=== PATIENT | female | born 1935 | race Caucasian/White ===

== ENCOUNTER → 2016-07-02 | Outpatient (CLI) | payer MEDICARE, OTHER ==
--- NOTE | 2016-07-02 16:26 | US ---
EXAM DESCRIPTION: US CAROTID DOPPLER BILATERAL CLINICAL HISTORY: PRIOR CAROTID ENDARTERECTOMY, OCCLUSION AND STENOSIS OF WENDY CAROT COMPARISON: None Available. TECHNIQUE: Color Doppler evaluation of the extracranial carotids FINDINGS: Right carotid: The right common carotid artery is unremarkable. Mild smooth heterogeneous plaque in the carotid bulb to proximal internal carotid arteries seen. Peak systolic velocity common carotid artery = 75 cm/s Peak systolic velocity internal carotid artery = 8 4 cm/s Peak systolic velocity external carotid artery = 88 cm/s ICA CCA ratio 1.1 Left carotid: Left common carotid artery is unremarkable. Postsurgical changes from left carotid endarterectomy are seen. There is moderate intimal thickening and smooth heterogeneous plaque in the carotid bulb to internal carotid artery. Peak systolic velocity common carotid artery = 85 cm/s Peak systolic velocity internal carotid artery = 80 cm/s Peak systolic velocity external carotid artery = 90 cm/s ICA CCA ratio 0.9 Antegrade flow is seen in both vertebral arteries Normal flow velocities and waveforms are demonstrated bilaterally. 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 Electronically signed by: George Tillman MD 07/02/2016 16:25
== END ==
LOC: GMAB 14:50
PROVIDERS: ATTEND Family Medicine
DX: I65.23 Occlusion and stenosis of bilateral carotid arteries (principal); M25.559 Pain in unspecified hip

== ENCOUNTER → 2016-10-13 | Outpatient (CLI) | payer MEDICARE | END | disposition home or self-care (01) | LOC: GOCC 12:17 | PROVIDERS: ATTEND Internal Medicine | DX: R30.0 Dysuria (principal) ==

== ENCOUNTER 2017-02-07 09:16 | Emergency (ER) | payer MEDICARE ==
[2017-02-07 09:35] VITALS: TEMP 98.8
--- NOTE | 2017-02-07 09:55 | RAD ---
EXAM DESCRIPTION: Hip Bilateral CLINICAL HISTORY: 81 years, Female, fall COMPARISON: None TECHNIQUE: Two views of each hip FINDINGS: Two views of the coquille left hip demonstrate osteopenia and mild degenerative changes. The pubic initial ramus and the acetabulum are intact without evidence of fracture or dislocation of the hip. Two views of the right total hip replacement illustrates satisfactory alignment without evidence of loosening or erosion or dislocation. Extensive vascular calcification is present. IMPRESSION: 1. Osteopenic bony structures with satisfactory left hip in satisfactory right total hip replacement. Electronically signed by: Markel Hylton MD 02/07/2017 9:54 AM CDT
--- NOTE | 2017-02-07 09:56 | RAD ---
EXAM DESCRIPTION: Pelvis,2 or More Views CLINICAL HISTORY: 81 years Female, fall COMPARISON: None. FINDINGS: Pelvis is osteopenic but intact without evidence of deformity of the bony pelvic ring or fracture or soft tissue mass. IMPRESSION: Osteopenia without bony abnormality Electronically signed by: Markel Hylton MD 02/07/2017 9:55 AM CDT
--- NOTE | 2017-02-07 10:04 | ED.PDOC ---
History of Present Illness - General Chief Complaint: Lower Extremity Injury Stated Complaint: s/p fall Time Seen by Provider: 02/07/17 09:24 Source: patient Exam Limitations: no limitations - History of Present Illness Initial Comments: Sabra Mnan 81 y/o female stated that she fell on her bottom to the floor after her wheelchair rolled and unable to get to her wheelchair .Denies head, neck,chest injuries.No hip pains but wants to be checked since she had 3 surgeries on her right hip She was helped by assisted personnel and EMS was called to bring her to hospital. Timing/Duration: 1-3 hours Severity: mild Worsening Factors: nothing Associated Symptoms: denies symptoms Allergies/Adverse Reactions: Allergies Hydrocodone Allergy (Verified 02/07/17 09:32) Home Medications: Ambulatory Orders Acetaminophen W/ Codeine [Tylenol W/ CODEINE #3] 1 ea PO Q4H PRN 02/07/17 Alum & Mag Hydrox-Simethicone [Calista-Lanta] 30 ml PO TID PRN 02/07/17 Cyclobenzaprine HCl [Flexeril] 10 mg PO Q6H PRN 02/07/17 Furosemide 20 mg PO DAILY 02/07/17 Insulin Detemir [Levemir] 25 units SUBCU BEDTIME 02/07/17 Insulin Regular (Human) [Humulin R] 100 unit IJ BEDTIME 02/07/17 Insulin Regular (Human) [Novolin R U-100] 100 unit IJ AC 02/07/17 Metoprolol Succinate [Metoprolol Succinate ER] 100 mg PO BID 02/07/17 Nystatin Powder [Mycostatin] 15 gm TOP DAILY 02/07/17 Ondansetron Odt [Zofran ODT] 8 mg PO Q8H PRN 02/07/17 Potassium Chloride [Micro-K] 10 meq PO DAILY 02/07/17 Sodium Chloride 1 gm PO BID 02/07/17 Review of Systems - Review of Systems Constitutional: States: no symptoms reported EENTM: States: no symptoms reported Respiratory: States: no symptoms reported Cardiology: States: no symptoms reported Gastrointestinal/Abdominal: States: no symptoms reported Genitourinary: States: no symptoms reported Musculoskeletal: States: no symptoms reported Past Medical History (General) - Patient Medical History Hx Congestive Heart Failure: No Hx Hypertension: Yes Hx Diabetes: Yes Surgical History: other - breast lumpectomy - Vaccination History Hx Influenza Vaccination: No Hx Pneumococcal Vaccination: No - Social History Hx Tobacco Use: No - Activities of Daily Living Shelter/Assisted Living (if applicable):: [facility] Family Medical History - Family History Mother Family History: Unknown Living Status: Physical Exam - Physical Exam General Appearance: Alert, No apparent distress Eye Exam: bilateral normal Ears, Nose, Throat: hearing grossly normal, normal ENT inspection Neck: non-tender, full range of motion, supple Respiratory: chest non-tender, lungs clear Cardiovascular/Chest: normal peripheral pulses, regular rate, rhythm, no murmur Peripheral Pulses: radial,right: 1+, radial,left: 1+ Gastrointestinal/Abdominal: non tender, soft, no organomegaly Back Exam: normal inspection, no CVA tenderness, no vertebral tenderness Extremity: non-tender, normal inspection, no calf tenderness, pelvis stable Neurologic: alert, normal mood/affect, oriented x 3 Skin Exam: normal color, warm/dry Lymphatic: no adenopathy Progress - Progress Progress: 02/07/17 10:06 Vital Signs 02/07/17 09:26 Temperature 98.8 F Pulse Rate [ 72 Right Brachial] Respiratory 16 Rate Blood Pressure 162/72 [Right Arm] O2 Sat by Pulse 96 Oximetry - EKG/XRAY/CT XRAY: hip - no fractures/osteopenia-radiologist Departure - Departure Clinical Impression: Fall at assisted Qualifiers: Encounter type: initial encounter Qualified Code(s): W19.XXXA - Unspecified fall, initial encounter; Y92.129 - Unspecified place in assisted as the place of occurrence of the external cause Contusion of pelvis Qualifiers: Encounter type: initial encounter Qualified Code(s): S30.0XXA - Contusion of lower back and pelvis, initial encounter Contusion of hip, right Qualifiers: Encounter type: initial encounter Qualified Code(s): S70.01XA - Contusion of right hip, initial encounter Time of Disposition: 10:10 Disposition: Discharge to Home or Self Care Departure Forms: ED Discharge - Pt. Copy, Patient Portal Self Enrollment Instructions: How to Prevent Falls, Ranjit Chi May Improve Physical Function, Reduce Falls Referrals: Benji Carranza MD [Primary Care Provider] - 1-2 Weeks Home Medications: Ambulatory Orders Acetaminophen W/ Codeine [Tylenol W/ CODEINE #3] 1 ea PO Q4H PRN 02/07/17 Alum & Mag Hydrox-Simethicone [Calista-Lanta] 30 ml PO TID PRN 02/07/17 Cyclobenzaprine HCl [Flexeril] 10 mg PO Q6H PRN 02/07/17 Furosemide 20 mg PO DAILY 02/07/17 Insulin Detemir [Levemir] 25 units SUBCU BEDTIME 02/07/17 Insulin Regular (Human) [Humulin R] 100 unit IJ BEDTIME 02/07/17 Insulin Regular (Human) [Novolin R U-100] 100 unit IJ AC 02/07/17 Metoprolol Succinate [Metoprolol Succinate ER] 100 mg PO BID 02/07/17 Nystatin Powder [Mycostatin] 15 gm TOP DAILY 02/07/17 Ondansetron Odt [Zofran ODT] 8 mg PO Q8H PRN 02/07/17 Potassium Chloride [Micro-K] 10 meq PO DAILY 02/07/17 Sodium Chloride 1 gm PO BID 02/07/17 Additional Instructions: RETURN TO EMERGENCY ROOM NEEDED
[2017-02-07 10:43] VITALS: BP 139/74; O2SAT 97
== END 2017-02-07 10:43 | disposition home or self-care (01) ==
LOC: ER 09:16
DX: S30.0XXA Contusion of lower back and pelvis, initial encounter (principal); S70.01XA Contusion of right hip, initial encounter; I10 Essential (primary) hypertension; E11.9 Type 2 diabetes mellitus without complications; Z79.4 Long term (current) use of insulin; Z79.899 Other long term (current) drug therapy; Z88.6 Allergy status to analgesic agent; W05.0XXA Fall from non-moving wheelchair, initial encounter; Y92.129 Unspecified place in nursing home as the place of occurrence of the external cause

== ENCOUNTER 2017-04-08 21:22 | Emergency (ER) | payer MEDICARE, MEDICAID ==
--- NOTE | 2017-04-08 21:31 | ED.PDOC ---
History of Present Illness - General Chief Complaint: General Time Seen by Provider: 04/08/17 21:29 Source: patient, Vital Signs reviewed, family - - History of Present Illness Initial Comments: Sabra Mann 82 y/o female diabetic brought by tonight after she was given regular insulin instead of long acting insulin tonight.Denies any dizziness,lightheadedness,nausea,vomiting blurry vision. took her blood sugar tonight and according to him it was 992 and we told him it wont read that high blood sugar.FSBS taken here in ER [id number]. brought his Accucheck in er and he read it upside down 226- Timing/Duration: 4-6 hours Severity: mild Improving Factors: nothing Worsening Factors: nothing Associated Symptoms: denies symptoms Allergies/Adverse Reactions: Allergies Hydrocodone Allergy (Verified 02/07/17 09:32) Home Medications: Ambulatory Orders Acetaminophen W/ Codeine [Tylenol W/ CODEINE #3] 1 ea PO Q4H PRN 02/07/17 Alum & Mag Hydrox-Simethicone [Calista-Lanta] 30 ml PO TID PRN 02/07/17 Cyclobenzaprine HCl [Flexeril] 10 mg PO Q6H PRN 02/07/17 Furosemide 20 mg PO DAILY 02/07/17 Insulin Detemir [Levemir] 25 units SUBCU BEDTIME 02/07/17 Insulin Regular (Human) [Humulin R] 100 unit IJ BEDTIME 02/07/17 Insulin Regular (Human) [Novolin R U-100] 100 unit IJ AC 02/07/17 Metoprolol Succinate [Metoprolol Succinate ER] 100 mg PO BID 02/07/17 Nystatin Powder [Mycostatin] 15 gm TOP DAILY 02/07/17 Ondansetron Odt [Zofran ODT] 8 mg PO Q8H PRN 02/07/17 Potassium Chloride [Micro-K] 10 meq PO DAILY 02/07/17 Sodium Chloride 1 gm PO BID 02/07/17 Review of Systems - Review of Systems Constitutional: States: no symptoms reported EENTM: States: no symptoms reported Respiratory: States: no symptoms reported Cardiology: States: no symptoms reported Gastrointestinal/Abdominal: States: no symptoms reported Genitourinary: States: no symptoms reported Musculoskeletal: States: no symptoms reported Skin: States: no symptoms reported Neurological: States: no symptoms reported Past Medical History (General) - Patient Medical History Hx Congestive Heart Failure: No Hx Hypertension: Yes Hx Diabetes: Yes Surgical History: other - breast lumpectomy - Vaccination History Hx Influenza Vaccination: No Hx Pneumococcal Vaccination: No - Social History Hx Tobacco Use: No - Activities of Daily Living Patient Lives Alone: No - Grooming Ability: Independent Eating (Feeding) Ability: Independent Toileting Ability: Independent - Female History Patient is a Female of Child Bearing Age (10 -59 yrs old): Yes Patient : No - menopausal Family Medical History - Family History Mother Family History: Unknown Living Status: Physical Exam - Physical Exam General Appearance: Alert, Comfortable, No apparent distress Eye Exam: bilateral normal - with glasses Ears, Nose, Throat: hearing grossly normal, normal ENT inspection, normal pharynx Neck: non-tender, full range of motion, supple, normal inspection Respiratory: chest non-tender, lungs clear, normal breath sounds Cardiovascular/Chest: normal peripheral pulses, regular rate, rhythm, no murmur Peripheral Pulses: radial,right: 2+, radial,left: 2+ Gastrointestinal/Abdominal: normal bowel sounds, non tender, soft, no organomegaly Back Exam: normal inspection, no vertebral tenderness Extremity: normal range of motion, no pedal edema, no calf tenderness Neurologic: alert, normal mood/affect, oriented x 3 Skin Exam: normal color, warm/dry Lymphatic: no adenopathy Progress - Progress Progress: 04/08/17 21:55 Vital Signs - 8 hr 04/08/17 04/08/17 21:31 21:39 Temperature 98.1 F Respiratory 20 20 Rate Blood Pressure 160/83 [Left Arm] O2 Sat by Pulse 100 Oximetry Departure - Departure Clinical Impression: History of diabetes mellitus, type II Medication administered in error Qualifiers: Encounter type: initial encounter Injury intent: accidental or unintentional Qualified Code(s): T50.901A - Poisoning by unspecified drugs, medicaments and biological substances, accidental (unintentional), initial encounter Time of Disposition: 21:57 Disposition: Discharge to Home or Self Care Condition: Fair Departure Forms: ED Discharge - Pt. Copy, Patient Portal Self Enrollment Instructions: DI for Hypoglycemia, Hypoglycemia Referrals: Benji Carranza MD [Primary Care Provider] - 1-2 Weeks Home Medications: Ambulatory Orders Acetaminophen W/ Codeine [Tylenol W/ CODEINE #3] 1 ea PO Q4H PRN 02/07/17 Alum & Mag Hydrox-Simethicone [Calista-Lanta] 30 ml PO TID PRN 02/07/17 Cyclobenzaprine HCl [Flexeril] 10 mg PO Q6H PRN 02/07/17 Furosemide 20 mg PO DAILY 02/07/17 Insulin Detemir [Levemir] 25 units SUBCU BEDTIME 02/07/17 Insulin Regular (Human) [Humulin R] 100 unit IJ BEDTIME 02/07/17 Insulin Regular (Human) [Novolin R U-100] 100 unit IJ AC 02/07/17 Metoprolol Succinate [Metoprolol Succinate ER] 100 mg PO BID 02/07/17 Nystatin Powder [Mycostatin] 15 gm TOP DAILY 02/07/17 Ondansetron Odt [Zofran ODT] 8 mg PO Q8H PRN 02/07/17 Potassium Chloride [Micro-K] 10 meq PO DAILY 02/07/17 Sodium Chloride 1 gm PO BID 02/07/17 Additional Instructions: NEED TO READ NAME OF MEDICATION BEFORE ADMINISTERING;EAT SNACKS TONIGHT ; RECHECK BLOOD SUGAR AT 4 AM and for any hypoglycemic symptoms;Reurn to ER as needed
[2017-04-08 21:49] VITALS: BP 160/83; TEMP 98.1; O2SAT 100
== END 2017-04-08 22:12 | disposition home or self-care (01) ==
LOC: ER 21:22
DX: T38.3X1A Poisoning by insulin and oral hypoglycemic [antidiabetic] drugs, accidental (unintentional), initial encounter (principal); E11.9 Type 2 diabetes mellitus without complications; I10 Essential (primary) hypertension; Z79.4 Long term (current) use of insulin; Z79.899 Other long term (current) drug therapy; Y92.009 Unspecified place in unspecified non-institutional (private) residence as the place of occurrence of the external cause

== ENCOUNTER → 2018-01-28 | Outpatient (CLI) | payer OTHER | LOC: GMAE 14:26 | PROVIDERS: ATTEND Family Medicine | DX: I10 Essential (primary) hypertension (principal) ==

== ENCOUNTER 2019-02-02 14:16 | Observation (INO) | payer MEDICARE, OTHER ==
[2019-02-02] MEDS ORDERED: KETOROLAC TROMETHAMINE INJ 30 MG/ML VIAL IV ONE (15:12)
[2019-02-02] MEDS ORDERED: SODIUM CHLORIDE 0.9% 1000ML 1,000 ML IVS ONE ×2 (15:12→21:14)
[2019-02-02] MEDS ORDERED: SODIUM CHLORIDE 0.9% (FLUSH) 10 ML SYG IV PRN ×2 (15:12→21:09)
--- NOTE | 2019-02-02 15:56 | ED.PDOC ---
History of Present Illness - General Chief Complaint: Back Pain or Injury Stated Complaint: back pain Time Seen by Provider: 02/02/19 15:11 Source: patient, family Exam Limitations: no limitations - History of Present Illness Initial Comments: PT PRESENTS WITH COMPLAINT OF LEFT FLANK AND LOWER ABDOMINAL PAIN INTERMITTENTLY FOR THE PAST SEVERAL WEEKS. PT DENIES ANY ASSOCIATED SYMPTOMS SUCH DYSURIA, DIARRHEA, CONSTIPATION, NAUSEA, VOMITING, WEIGHT LOSS OR WEIGHT GAIN OVER THE PAST FEW WEEKS. PT AND ARE POOR HISTORIANS SO ROS AND HPI IS LIMITED. Timing/Duration: intermittent Severity: moderate Improving Factors: immobilization Worsening Factors: movement Associated Symptoms: denies symptoms Allergies/Adverse Reactions: Allergies Hydrocodone Allergy (Verified 02/07/17 09:32) Home Medications: Ambulatory Orders Acetaminophen W/ Codeine [Tylenol W/ CODEINE #3] 1 ea PO Q4H PRN 02/07/17 Alum & Mag Hydrox-Simethicone [Calista-Lanta] 30 ml PO TID PRN 02/07/17 Cyclobenzaprine HCl [Flexeril] 10 mg PO Q6H PRN 02/07/17 Furosemide 20 mg PO DAILY 02/07/17 Insulin Detemir [Levemir] 25 units SUBCU BEDTIME 02/07/17 Insulin Regular (Human) [Humulin R] 100 unit IJ BEDTIME 02/07/17 Insulin Regular (Human) [Novolin R U-100] 100 unit IJ AC 02/07/17 Metoprolol Succinate [Metoprolol Succinate ER] 100 mg PO BID 02/07/17 Nystatin Powder [Mycostatin] 15 gm TOP DAILY 02/07/17 Ondansetron Odt [Zofran ODT] 8 mg PO Q8H PRN 02/07/17 Potassium Chloride [Micro-K] 10 meq PO DAILY 02/07/17 Sodium Chloride 1 gm PO BID 02/07/17 Review of Systems - Review of Systems Constitutional: Denies: chills, fever EENTM: Denies: nose congestion, throat pain Respiratory: Denies: cough, short of breath Cardiology: Denies: chest pain, palpitations Gastrointestinal/Abdominal: States: see HPI, abdominal pain. Denies: nausea, vomiting Genitourinary: Denies: dysuria, hematuria Musculoskeletal: States: see HPI, back pain. Denies: joint pain Skin: Denies: dryness, lesions Neurological: States: no symptoms reported Endocrine: States: no symptoms reported Past Medical History (General) - Patient Medical History Hx Seizures: No Hx Stroke: No Hx Dementia: No Hx Asthma: No Hx of COPD: No Hx Cardiac Disorders: No Hx Congestive Heart Failure: No Hx Pacemaker: No Hx Hypertension: Yes Hx Thyroid Disease: No Hx Diabetes: Yes Hx Gastroesophageal Reflux: No Hx Renal Disease: No Hx Cancer: Yes - breast Hx of HIV: No Hx Hepatitis C: No Hx MRSA: No - Vaccination History Hx Tetanus, Diphtheria Vaccination: Yes Hx Influenza Vaccination: No Hx Pneumococcal Vaccination: No - Social History Hx Tobacco Use: No - Female History Patient : No - menopausal Family Medical History - Family History Mother Family History: Unknown Living Status: Physical Exam - Physical Exam General Appearance: Alert, Well Developed, Well Groomed, Well Hydrated, Well Nourished, Other - APPEARS UNCOMFORTABLE Eye Exam: bilateral normal Ears, Nose, Throat: hearing grossly normal Respiratory: lungs clear, normal breath sounds, no respiratory distress Cardiovascular/Chest: regular rate, rhythm, no murmur Gastrointestinal/Abdominal: tenderness - ALONG LUQ AND LLQ, mass - FIRM PROTUBERANT LOWER ABDOMEN Back Exam: normal inspection, no CVA tenderness, other - BILATERAL PARASACRAL TENDERNESS Extremity: non-tender, normal inspection, no pedal edema Neurologic: alert, normal mood/affect Skin Exam: normal color, warm/dry Progress - Progress Progress: 02/02/19 17:05 PT RESTING COMFORTABLY, REPORTS SIGNIFICANT IMPROVEMENT IN PAIN AFTER IV TORADOL. LABS AND DIAGNOSTICS DISCUSSED. - Results/Orders Results/Orders: Laboratory Tests 02/02/19 02/02/19 02/02/19 15:15 15:25 15:25 WBC 13.7 H RBC 4.75 Hgb 15.0 Hct 44.7 MCV 94.3 MCH 31.7 H MCHC 33.6 RDW 13.1 Plt Count 297 MPV 8.7 Absolute Neuts (auto) 6.80 Absolute Lymphs (auto) 5.50 H Absolute Monos (auto) 1.20 H Absolute Eos (auto) 0.20 Absolute Basos (auto) 0.10 Neutrophils % 49.2 Lymphocytes % 40.2 Monocytes % 8.4 Eosinophils % 1.4 Basophils % 0.8 Sodium 138 Potassium 4.1 Chloride 97 L Carbon Dioxide 28 Anion Gap 17.1 BUN 14 Creatinine 0.55 L BUN/Creatinine Ratio 25.5 H Random Glucose 126 H Serum Osmolality 277.7 Calcium 9.7 Total Bilirubin 0.6 Direct Bilirubin < 0.1 Indirect Bilirubin 0.5 AST 23 ALT 16 Alkaline Phosphatase 58 Serum Total Protein 8.4 H Albumin 4.3 Urine Color Yellow Urine Appearance Sl cloudy Urine pH 7.5 Ur Specific Alexander 1.015 Urine Protein Trace Urine Glucose (UA) Negative Urine Ketones Negative Urine Blood Trace-intact H Urine Nitrite Negative Urine Bilirubin Negative Urine Urobilinogen 0.2 Ur Leukocyte Esterase Moderate H Urine RBC 0-1 Urine WBC 20-30 H Ur Epithelial Cells 5-10 Urine Bacteria 1+ Departure - Departure Clinical Impression: Pyelonephritis, acute, Uncontrolled hypertension Time of Disposition: 17:03 Disposition: Admit Patient Condition: Fair Departure Forms: ED Discharge - Pt. Copy, Patient Portal Self Enrollment Instructions: DI for Low Back Pain Referrals: POLO MARIE MD [Primary Care Provider] - 1-2 Weeks Home Medications: Ambulatory Orders Acetaminophen W/ Codeine [Tylenol W/ CODEINE #3] 1 ea PO Q4H PRN 02/07/17 Alum & Mag Hydrox-Simethicone [Calista-Lanta] 30 ml PO TID PRN 02/07/17 Cyclobenzaprine HCl [Flexeril] 10 mg PO Q6H PRN 02/07/17 Furosemide 20 mg PO DAILY 02/07/17 Insulin Detemir [Levemir] 25 units SUBCU BEDTIME 02/07/17 Insulin Regular (Human) [Humulin R] 100 unit IJ BEDTIME 02/07/17 Insulin Regular (Human) [Novolin R U-100] 100 unit IJ AC 02/07/17 Metoprolol Succinate [Metoprolol Succinate ER] 100 mg PO BID 02/07/17 Nystatin Powder [Mycostatin] 15 gm TOP DAILY 02/07/17 Ondansetron Odt [Zofran ODT] 8 mg PO Q8H PRN 02/07/17 Potassium Chloride [Micro-K] 10 meq PO DAILY 02/07/17 Sodium Chloride 1 gm PO BID 02/07/17 Decision To Admit - Decistion To Admit Decision to Admit Reason: Admit from ER Decision to Admit Date: 02/02/19 Decision to Admit Time: 17:06 - CASE DISCUSSED WITH DARION SANABRIA WHO AGREES TO ADMIT
--- NOTE | 2019-02-02 16:39 | CT ---
EXAM DESCRIPTION: Abdomen/Pelvis w/Contrast CLINICAL HISTORY: abdominal pain, back pain COMPARISON: None. TECHNIQUE: Postcontrast CT images of the abdomen and pelvis are obtained using standard imaging protocol. This exam was performed according to our departmental dose-optimization program, which includes automated exposure control, adjustment of the mA and/or kV according to patient size and/or use of iterative reconstruction technique . FINDINGS: Visualized lower chest shows enlarged heart. Severe calcifications of the mitral valve annulus. Interstitial thickening in the lung bases. Mild diffuse fatty infiltration of the liver. No enhancing hepatic lesion. Calcifications of the spleen suggest old granulomatous disease. Pancreas, right adrenal gland, and gallbladder are unremarkable. Incidental mass of the lateral limb of the left adrenal gland measures 2.4 cm, is homogeneous in attenuation, and shows Hounsfield units of 122. Severe calcified atherosclerotic disease without aneurysmal dilatation of the aorta. No nephrolithiasis. Normal cortical enhancement. No ureteral calcification or obstruction. Urinary bladder is poorly distended and not well evaluated. Streak artifact from right total hip arthroplasties appears visualization of the lower pelvis. Uterus and ovaries are unremarkable. Appendix is normal. Stomach is poorly distended but unremarkable. No small bowel obstruction or bowel wall thickening. No colon wall thickening. Mild scattered diverticuli of the colon without associated inflammatory changes or fluid collections. Small fat-containing umbilical hernia. No pathologic lymphadenopathy. No free intraperitoneal air or abnormal drainable fluid collections. Multilevel age-indeterminate compression fracture deformities of the lower thoracic and lumbar spine with moderate to severe disc degenerative changes and facet arthropathy of the spine. IMPRESSION: No acute findings on CT of the abdomen and pelvis. Colon diverticulosis without CT evidence of diverticulitis. Multiple age-indeterminate compression fracture deformities of the lower thoracic to lumbar spine with severe spondylitic changes of the spine. Incidental left adrenal gland mass measures 2.4 cm. 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 Recommend adrenal washout CT or chemical shift MRI imaging. Electronically signed by: George Tillman MD 02/02/2019 4:37 PM CDT
[2019-02-02] MEDS ORDERED: cefTRIAXone SODIUM 1 GM in SODIUM CHL 0.9% 50ML MIN-BAG+ 50 ML IVPB ONE (16:43)
[2019-02-02] MEDS ORDERED: cefTRIAXone SODIUM 1 GM VIAL ONE (16:56)
[2019-02-02] MEDS ORDERED: SODIUM CHL 0.9% 50ML MIN-BAG+ 50 ML IVPB ONE (16:56)
[2019-02-02] MEDS: hydrALAZINE HCl 20 MG/ML VIAL IV ONE ×2 (17:10→18:48)
--- NOTE | 2019-02-02 18:05 | HP ---
SUPERVISING PHYSICIAN: Raúl Sparks MD CHIEF COMPLAINT: Left-sided back pain. HISTORY OF PRESENT ILLNESS: This is an 83 year-old female patient who has had about 2 to 3 weeks of abdominal pain that extends from her right upper quadrant, across the epigastrium to the left upper quadrant and around to her left flank. It has been intermittent during this time but in the last several days it has increased in intensity and frequency. The patient is a very poor historian and the history of present illness is limited. Her initial vital signs were temperature 99.2, heart rate 64, blood pressure 223/97, respiratory rate 20, 02 saturation 96% on room air. Shortly thereafter, her blood pressure was 197/93. She was given some hydralazine for her elevated blood pressure as well as some judicious fluids. Lab was drawn. Her WBCs were 13,700 with hemoglobin 15 and hematocrit of 44.7. Electrolytes were basically within normal limits with the exception chloride was slightly low at 97. Urinalysis showed a trace of intact urine blood, moderate amount of urine leukocyte esterase and 20 to 30 urine WBCs. Blood cultures were drawn, urine cultures were obtained. Abdominal/pelvic CT shows no acute findings with colon diverticulosis without CT evidence of diverticulitis with multiple age-indeterminant compression fracture deformities of the lower thoracic to lumbar spine with severe spondylotic changes in the spine. Incidental left adrenal gland mass measures 2.4 cm, likely represents an adenoma. Recommend an adrenal washout CT or chemical shift MRI imaging. She was also given some Rocephin in the Emergency Room and I was called for hospital admission for urinary tract infection with concerns for developing pyelonephritis and urosepsis. PAST MEDICAL HISTORY: 1. Diabetes mellitus type 2. 2. Hyperlipidemia. 3. Hypertension. 4. Mild dementia. PAST SURGICAL HISTORY: 1. Carotid endarterectomy. 2. Right mastectomy due to breast cancer. CURRENT MEDICATIONS: Per the EMR and awaiting verification. ALLERGIES: No known drug allergies. FAMILY HISTORY: SOCIAL HISTORY: She is . She lives in [place]. She denies any tobacco, ETOH or illicit drug use. REVIEW OF SYSTEMS: GENERAL: Positive for chills, negative for fever or weight changes. HEENT: Negative for sinus symptoms, ear pain, vision changes, sore throat. RESPIRATORY: Negative for coughing, wheezing, shortness of breath CARDIAC: Negative for chest pain, palpitations, tachycardia. GI: As per history of present illness. GENITOURINARY: Negative for hematuria, dysuria, polyuria. MUSCULOSKELETAL: Positive for left-sided back pain. SKIN: Negative for lesions or rashes. NEUROLOGICAL: Negative for headaches, dizziness or seizures. PHYSICAL EXAMINATION: VITAL SIGNS: Temperature 98.2, heart rate 66, blood pressure 164/81, respiratory rate 20, oxygen saturation 97% on room air. GENERAL: This is an 83 year-old female who is lying in her hospital bed. She is in no acute distress. HEENT: Normocephalic and atraumatic. Pupils are equal and reactive. NECK: Supple without mass. CHEST: Essentially clear to auscultation bilaterally. There is equal rise and fall of the chest with inspiration and expiration. CARDIOVASCULAR: Regular rate and rhythm. ABDOMEN: Soft but she is mildly tender across the right upper quadrant, epigastric and left upper quadrant. She does have some moderate left flank tenderness. Bowel sounds are positive. GENITOURINARY: Deferred. SKIN: Warm and dry with no lesions or rashes noted. EXTREMITIES: NEUROLOGIC: She is awake and alert. She is oriented to person and place. She has some mild difficulty answering simply questioning as she gets quite confused. Labs and films are as per the history of present illness. ASSESSMENT: 1. Urinary tract infection with concerns for left-sided pyelonephritis with an admitting WBC of 13,700 and temperature of 99.3. 2. 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 Needs adrenal CT washout. 3. Thoracic and L-spine compression fractures of indeterminate age. 4. Diabetes mellitus type 2. 5. Hypertension on medication. 6. History of right breast cancer with mastectomy. 7. Dementia. PLAN: The patient has been admitted to the hospital. She will continue with some judicious fluids overnight and I will continue with her Rocephin. I will monitor her cultures as they become available. She will need a followup with her primary care physician, Dr. Sparks, for followup on the mass on her adrenal gland. I have also started blood sugar checks with sliding scale insulin a.c. and h.s. I have consulted physical therapy. I will repeat her labs in the morning, put her on PPI for prophylaxis as well as SCDs for DVT prophylaxis. Will monitor her cultures and continue to monitor closely and follow as needed. #[id number] [facility]
[2019-02-02] MEDS ORDERED: ONDANSETRON INJ 4 MG/2 ML VIAL IV PRN (21:09)
[2019-02-02] MEDS ORDERED: ACETAMINOPHEN 325 MG TAB PO PRN (21:09)
[2019-02-02] MEDS ORDERED: DEXTROSE 50% 25 GM/50 ML SYG IV PRN (21:12)
[2019-02-02] MEDS ORDERED: GLUCAGON INJ 1 MG VIAL SUBCU PRN (21:12)
[2019-02-02] MEDS ORDERED: IV SET AND CAP CHANGE INJ INJ SCH (21:30)
[2019-02-03] MEDS: PANTOPRAZOLE SODIUM TAB 40 MG PO SCH (05:49)
[2019-02-03] MEDS ORDERED: cefTRIAXone SODIUM 1 GM VIAL ONE (07:22)
[2019-02-03] MEDS ORDERED: SODIUM CHL 0.9% 50ML MIN-BAG+ 50 ML IVPB ONE (07:22)
[2019-02-03] MEDS: INSULIN LISPRO 100 UNITS/ML PEN SUBCU SCH ×4 (09:43→20:56)
[2019-02-03] MEDS: SODIUM CHLORIDE 0.9% (FLUSH) 10 ML SYG IV SCH ×2 (09:48→20:30)
[2019-02-03] MEDS: cefTRIAXone SODIUM 1 GM in SODIUM CHL 0.9% 50ML MIN-BAG+ 50 ML IVPB SCH (09:49)
[2019-02-03] MEDS ORDERED: METOPROLOL SUCCINATE XL 50 MG TAB ONE (19:22)
[2019-02-03] MEDS: METOPROLOL SUCCINATE XL 100 MG TAB PO SCH (20:30)
[2019-02-03] MEDS: ENOXAPARIN SODIUM 40 MG/0.4 ML SYG SUBCU SCH (20:30)
--- NOTE | 2019-02-03 22:29 | PN ---
DATE: 02/03/19 SUPERVISING PHYSICIAN: Raúl Sparks M.D. SUBJECTIVE: The patient is still having some left sided flank pain. She has had no nausea or vomiting. Her says that she is a little bit still confused at times. OBJECTIVE: VITAL SIGNS: Temperature 98.2, pulse 60, blood pressure 151/73, respirations 14, satting 94% on room air. I's and O's show a positive balance of 1300 with 2300 in, 1000 out. Weight is 58.5 kg. GENERAL: The patient is resting comfortably. Appears to be in no acute distress. She is alert. CHEST: Lungs are clear to auscultation. HEART: Regular rate and rhythm. ABDOMEN: Soft, non-tender. Positive bowel sounds. BACK: Positive for CVA tenderness on the left. EXTREMITIES: Without any edema. NEUROLOGIC: She is alert and oriented times three. LABORATORY: White count now has normalized to 8,800 with hemoglobin 13.7, hematocrit 40.1 with platelet count 231,000. Differential shows to be without a left shift. Chemistries show a mild hypokalemia with potassium 3.5, sodium 136, BUN 9, creatinine 0.5. Blood sugars range between 126 and 221. Liver functions showing to be within normal limits. MICROBIOLOGY: Blood cultures negative at 24 hours. Urine culture is pending. RADIOLOGY: No additional radiographic studies today. ASSESSMENT: 1. Urinary tract infection with concerns for left-sided pyelonephritis with an admitting WBC of 13,700 and temperature of 99.3 with cultures still pending. 2. 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 Needs adrenal CT washout. 3. Thoracic and L-spine compression fractures of indeterminate age. 4. Electrolyte imbalance with hypokalemia. 5. Diabetes mellitus type 2. 6. Hypertension on medication. 7. History of right breast cancer with mastectomy. 8. Dementia. PLAN: Will continue with current plan of care at this point with fluids, Rocephin and await culture results. She is on sliding scale per insulin protocol. She is on an ADA 1800 calorie diet. Will check labs in the morning. Until we can transition to outpatient management with oral antibiotic therapy will continue to monitor and treat as needed. #[id number] [facility]
[2019-02-04] MEDS: PANTOPRAZOLE SODIUM TAB 40 MG PO SCH (06:08)
[2019-02-04] MEDS ORDERED: SODIUM CHL 0.9% 50ML MIN-BAG+ 50 ML IVPB ONE (07:03)
[2019-02-04] MEDS ORDERED: cefTRIAXone SODIUM 1 GM VIAL ONE (07:04)
[2019-02-04] MEDS: INSULIN LISPRO 100 UNITS/ML PEN SUBCU SCH ×4 (07:06→21:23)
[2019-02-04] MEDS: LISINOPRIL 5 MG TAB PO SCH (08:08)
[2019-02-04] MEDS: SODIUM CHLORIDE 0.9% (FLUSH) 10 ML SYG IV SCH ×2 (08:08→20:35)
[2019-02-04] MEDS: METOPROLOL SUCCINATE XL 100 MG TAB PO SCH ×2 (08:09→20:40)
[2019-02-04] MEDS: cefTRIAXone SODIUM 1 GM in SODIUM CHL 0.9% 50ML MIN-BAG+ 50 ML IVPB SCH (08:09)
--- NOTE | 2019-02-04 13:37 | PN ---
SUPERVISING PHYSICIAN: Reyna Sparks MD DATE: 02/04/19 SUBJECTIVE: The patient continues to have left sided flank pain. Otherwise, she is without any other complaints. She denies any nausea, vomiting or shortness of breath. Her does remain with her the majority of the time. We did discuss the patient's plan of care. OBJECTIVE: VITAL SIGNS: Temperature 98.5. Pulse 58. Blood pressure 172/78. Respirations 18. Oxygen saturation 95% on room air. I&Os show negative balance of 1020 with 1230 in and 2250 out. She had one bowel movement yesterday. Weight 58.1 kg. GENERAL: The patient is resting comfortably in the chair, appears to be in no acute distress. She is alert. CHEST: Lungs are clear to auscultation. HEART: Regular rate and rhythm. ABDOMEN: Obese, but soft, nontender. Positive bowel sounds. EXTREMITIES: Without any edema. NEUROLOGIC: She is alert and oriented times three. LABORATORY: Blood sugars between 148 and 237. MICROBIOLOGY: Blood cultures negative at 24 hours. Urine culture is pending. RADIOLOGY: No additional radiographic studies. ASSESSMENT: 1. Urinary tract infection with concerns for left-sided pyelonephritis with an admitting WBC of 13,700 and temperature of 99.3 with cultures still pending. 2. 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 Needs adrenal CT washout. 3. Thoracic and lumbar spine compression fractures of indeterminate age. 4. Electrolyte imbalance with hypokalemia. 5. Diabetes mellitus, type 2. 6. Hypertension on medication. 7. History of right breast cancer with mastectomy. 8. Dementia. PLAN: Will continue with current plan of care at this point with Rocephin and await culture results. We will target antibiotic therapy once those results are available. She remains on sliding scale per insulin protocol and DVT prophylaxis. I will plan to check labs in the morning. Until we can transition to outpatient management with oral antibiotic therapy, we will continue to monitor and treat as needed. #[id number] [facility]
[2019-02-04] MEDS: ENOXAPARIN SODIUM 40 MG/0.4 ML SYG SUBCU SCH (20:40)
[2019-02-05] MEDS ORDERED: SODIUM PHOS/BIPHOS ENEMA ADULT 133 ML BTTL PR PRN (01:32)
[2019-02-05] MEDS: PANTOPRAZOLE SODIUM TAB 40 MG PO SCH (06:11)
[2019-02-05] MEDS ORDERED: cefTRIAXone SODIUM 1 GM VIAL ONE (06:59)
[2019-02-05] MEDS ORDERED: SODIUM CHL 0.9% 50ML MIN-BAG+ 50 ML IVPB ONE (06:59)
[2019-02-05] MEDS: INSULIN LISPRO 100 UNITS/ML PEN SUBCU SCH ×2 (07:10→11:43)
[2019-02-05] MEDS: METOPROLOL SUCCINATE XL 100 MG TAB PO SCH (09:07)
[2019-02-05] MEDS: cefTRIAXone SODIUM 1 GM in SODIUM CHL 0.9% 50ML MIN-BAG+ 50 ML IVPB SCH (09:07)
[2019-02-05] MEDS: LISINOPRIL 5 MG TAB PO SCH (09:07)
[2019-02-05] MEDS: SODIUM CHLORIDE 0.9% (FLUSH) 10 ML SYG IV SCH (09:09)
[2019-02-05 11:28] VITALS: BP 141/73; TEMP 97.7; O2SAT 95
--- NOTE | 2019-02-24 08:12 | DS ---
SUPERVISING PHYSICIAN: Raúl Sparks MD ADMISSION DIAGNOSES: 1. Urinary tract infection with concerns for left-sided pyelonephritis with an admitting WBC of 13,700 and temperature of 99.3. 2. 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 Needs adrenal CT washout. 3. Thoracic and L-spine compression fractures of indeterminate age. 4. Diabetes mellitus type 2. 5. Hypertension on medication. 6. History of right breast cancer with mastectomy. 7. Dementia. DISCHARGE DIAGNOSES: 1. Urinary tract infection with greater than 100,000 colonies, urogenital dariel with patient having a left-sided pyelonephritis and initial sepsis with a white count 13,700 and temperature of 99.. 2. 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 Needs adrenal CT followup. 3. Thoracic and lumbar spine compression fractures of indeterminate age. 4. Electrolyte imbalance with hypokalemia, resolved. 5. Diabetes mellitus, type 2, stable. 6. Hypertension on medication, stable. 7. History of right breast cancer with mastectomy. 8. Dementia. REASON FOR HOSPITALIZATION: : This is an 83 year-old female patient who has had about 2 to 3 weeks of abdominal pain that extends from her right upper quadrant, across the epigastrium to the left upper quadrant and around to her left flank. It has been intermittent during this time but in the last several days it has increased in intensity and frequency. The patient is a very poor historian and the history of present illness is limited. Her initial vital signs were temperature 99.2, heart rate 64, blood pressure 223/97, respiratory rate 20, 02 saturation 96% on room air. Shortly thereafter, her blood pressure was 197/93. She was given some hydralazine for her elevated blood pressure as well as some judicious fluids. Lab was drawn. Her WBCs were 13,700 with hemoglobin 15 and hematocrit of 44.7. Electrolytes were basically within normal limits with the exception chloride was slightly low at 97. Urinalysis showed a trace of intact urine blood, moderate amount of urine leukocyte esterase and 20 to 30 urine WBCs. Blood cultures were drawn, urine cultures were obtained. Abdominal/pelvic CT shows no acute findings with colon diverticulosis without CT evidence of diverticulitis with multiple age-indeterminant compression fracture deformities of the lower thoracic to lumbar spine with severe spondylotic changes in the spine. Incidental left adrenal gland mass measures 2.4 cm, likely represents an adenoma. Recommend an adrenal washout CT or chemical shift MRI imaging. She was also given some Rocephin in the Emergency Room. The patient was admitted to the hospital in stable condition. LABORATORY: White count on admission was 13,700, prior to discharge 9,300. Hemoglobin and hematocrit were showing to be stable at 13.8 and 40.1 respectively, platelet count 226,000. Differential showed to be without a left shift. Chemistries on admission showed normal electrolytes as well as at discharge with sodium being 137, potassium was slightly low at 3.4. Liver functions were all within normal limits. Creatinine .50 on discharge. Blood sugars were ranging between 148 to 90. Urinalysis on admission showed just trace intact blood with moderate amount of leukoesterase. Microscopic revealed 0 to 1 RBCs, 20 to 30 WBCs. 5 to 10 epithelials, 1+ bacteria. MICROBIOLOGY: Blood cultures remained negative for 5 days. Final culture result showed urogenital dariel present. RADIOLOGY: CT of the abdomen and pelvis prior to admission with contrast and per radiology interpretation was note of no nephrolithiasis, normal cortical enhancement, no ureteral calcification or obstruction, urinary bladder is poorly distended and now well evaluated. 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 Uterus and ovaries unremarkable. Appendix was normal. Pancreas, right adrenal gland and gallbladder are unremarkable. There was incidental mass of the lateral limb of the left adrenal gland measuring 2.4 cm, is homogenous in attenuation and shows Hounsfield units of 122. General findings being no acute findings on the CT of the abdomen and pelvis. Please see that report for details.; HOSPITAL COURSE: Ms. Mann was admitted for pyelonephritis and started on antibiotic coverage with Rocephin. She was on sliding scale per insulin protocol. She showed good response to treatment plan. On the morning of discharge, her assessment showed her vital signs to be stable with temperature 97.7, pulse 62, blood pressure 141/72, respirations are 15, oxygen saturation 95% on room air. PHYSICAL EXAMINATION: GENERAL: The patient appeared to be comfortable and in no acute distress. CHEST: Clear to auscultation, just slightly diminished towards the basis. HEART: Regular rate and rhythm. ABDOMEN: Soft, non-tender, positive bowel sounds. EXTREMITIES: No edema. NEUROLOGIC: She is alert and oriented x 3. PLAN: Ms. Hammond was discharged to continue with outpatient treatment plan for her pyelonephritis on 02/05/19. She was to followup with her primary care physician, Dr. Sparks. She was to resume her home medications previous to hospitalization. She was told to return to the hospital should she have worsening or concerns of symptoms. DISCHARGE DIET: Diabetic. ACTIVITIES: As tolerated. She is to continue with Ciprofloxacin #14, no refills, 500 mg twice a day. She was encouraged to push fluids with concern of dehydration and to help kidney function. Again, she was given instructions to return to the hospital should she have any concerning symptoms. DISPOSITION: Patient discharged home. She was discharged in stable condition. #[id number] [facility]
== END 2019-02-05 13:28 | disposition home or self-care (01) ==
LOC: ER 14:16 → INTOOBSV 18:04 → MS 18:04
PROVIDERS: ADMIT Nurse Practitioner Acute Care; ATTEND Nurse Practitioner Family
DX: N39.0 Urinary tract infection, site not specified (principal); B96.89 Other specified bacterial agents as the cause of diseases classified elsewhere; E27.8 Other specified disorders of adrenal gland; M48.54XA Collapsed vertebra, not elsewhere classified, thoracic region, initial encounter for fracture; M48.56XA Collapsed vertebra, not elsewhere classified, lumbar region, initial encounter for fracture; E87.6 Hypokalemia; E87.8 Other disorders of electrolyte and fluid balance, not elsewhere classified; E11.9 Type 2 diabetes mellitus without complications; I10 Essential (primary) hypertension; E78.5 Hyperlipidemia, unspecified; K57.30 Diverticulosis of large intestine without perforation or abscess without bleeding; F03.90 Unspecified dementia, unspecified severity, without behavioral disturbance, psychotic disturbance, mood disturbance, and anxiety; Z85.3 Personal history of malignant neoplasm of breast; Z90.11 Acquired absence of right breast and nipple; Z79.4 Long term (current) use of insulin; Z79.899 Other long term (current) drug therapy
CPT/HCPCS: 96366 ×2; 96365; 96375; 96376; 96372 ×3; J0696 ×4; J0360; J1885; J7030 ×2; J1650 ×2; J1815; J7050 ×4; 80048 ×2; 80053; 87086; 82948 ×9; 36415 ×3; 81001; 80076; 85025 ×3; 87040 ×2; 83735; 36416 ×8; 74177; 94760 ×4; 97116; G8978; G8979; 97162; 99285

== ENCOUNTER → 2019-02-16 | Outpatient (CLI) | payer MEDICARE ==
--- NOTE | 2019-02-16 12:48 | CT ---
EXAM DESCRIPTION: CT ABDOMEN WITHOUT AND WITH CONTRAST CLINICAL HISTORY: NEOPLASM OF UNCERTAIN BEHAVIOR OF UNSPEC. ADRENAL GLAND COMPARISON: CT abdomen and pelvis dated 02/02/2019, 08/16/2010.. TECHNIQUE: CT of the abdomen is performed prior to and during IV bolus administration of Isovue intravenous contrast. Delayed phase imaging was obtained. FINDINGS: Bibasilar subsegmental atelectasis.. The liver is normal in size and parenchymal appearance. The spleen, pancreas, and kidneys are unremarkable. The approximately 2.2 cm left adrenal nodule measures approximately 37 Hounsfield units on noncontrast, 100.3 Hounsfield units postcontrast, and 60 Hounsfield units on delayed phase imaging with a calculated absolute washout ratio of 63.5% is consistent with adrenal adenoma., The lesion appears to be stable in size compared to prior examination dated 08/16/2010. The right adrenal gland is normal. There is no lymphadenopathy, inflammation, or free fluid observed. Multilevel mild chronic low thoracic and lumbar spine anterior vertebral body height loss. Degenerative changes of the spine. IMPRESSION: Left adrenal nodule (approximately 2.2 cm) with washout characteristic of a benign adrenal adenoma, stable in size compared to prior examination in 2010. This exam was performed according to our departmental dose-optimization program, which includes automated exposure control, adjustment of the mA and/or kV according to patient size and/or use of iterative reconstruction technique. Electronically signed by: John Yi DO 02/16/2019 12:46 PM CDT
== END ==
LOC: CT 09:22
PROVIDERS: ATTEND Family Medicine
DX: D44.10 Neoplasm of uncertain behavior of unspecified adrenal gland (principal)

== ENCOUNTER → 2019-04-28 | Outpatient (CLI) | payer MEDICARE | LOC: GMAE 11:25 | PROVIDERS: ATTEND Family Medicine | DX: I10 Essential (primary) hypertension (principal); E11.9 Type 2 diabetes mellitus without complications ==

== ENCOUNTER → 2020-05-10 | Outpatient (CLI) | payer MEDICARE | LOC: GMAE 10:51 | PROVIDERS: ATTEND Family Medicine | DX: I10 Essential (primary) hypertension (principal); E78.2 Mixed hyperlipidemia; E11.9 Type 2 diabetes mellitus without complications ==

== ENCOUNTER → 2020-05-17 | Outpatient (CLI) | payer MEDICARE | LOC: GMAE 15:37 | PROVIDERS: ATTEND Family Medicine | DX: R41.9 Unspecified symptoms and signs involving cognitive functions and awareness (principal) ==

== ENCOUNTER → 2020-05-22 | Outpatient (CLI) | payer MEDICARE ==
--- NOTE | 2020-05-22 15:54 | MRI ---
EXAM DESCRIPTION: Brain w/o Contrast CLINICAL HISTORY: UNSPECIFIED SYMPTOMS/SIGNS INVOLVING COGNITIVE FUNCTIONS COMPARISON: None available TECHNIQUE: Non contrast MRI of the brain is performed according to our usual protocol including multiplanar multi sequence technique. FINDINGS: 7 mm focus of restricted diffusion in the left frontal centrum semiovale, most consistent with an acute or subacute ischemic lacunar infarct. No hemorrhage, mass effect, or midline shift. There is normal configuration of the ventricles and sulci. Moderate generalized volume loss. Severe T2/FLAIR hyperintensities in the supratentorial white matter. Chronic right frontotemporal infarct with encephalomalacia. No abnormal extra-axial fluid collections are present. Normal flow voids are present. The calvarium is intact. Left mastoid effusion. The visualized paranasal sinuses are clear. IMPRESSION: 1. Findings consistent with an acute or subacute ischemic lacunar infarct in the left frontal centrum semiovale. 2. Advanced senescent changes. Electronically signed by: Henry Maki MD 05/22/2020 3:52 PM [facility]
== END ==
LOC: MRI 10:22
PROVIDERS: ATTEND Family Medicine
DX: R41.9 Unspecified symptoms and signs involving cognitive functions and awareness (principal); G93.9 Disorder of brain, unspecified; G31.1 Senile degeneration of brain, not elsewhere classified

== ENCOUNTER → 2020-07-10 | Outpatient (CLI) | payer MEDICARE ==
--- NOTE | 2020-07-11 12:52 | US ---
EXAM DESCRIPTION: Renal Arteries: Ultrasound. CLINICAL HISTORY: ESSENTIAL HYPERTENSION COMPARISON: Two-dimensional ultrasound evaluation of the bilateral kidneys on the same visit. TECHNIQUE: Transcutaneous scanning: Doppler peak systolic and end-diastolic velocities/measurements of the abdominal aorta, renal arteries, intra renal arteries, and renal veins. Grayscale evaluation of the kidneys was not performed. FINDINGS: PSV (cm/sec): Aorta: 50.5 Right renal artery: 100.6 Left renal artery: 50.5 EDV (cm/sec): Right renal artery: 18 Left renal artery: 10 Renal veins: Unremarkable IVC: Not seen. Intrarenal RI's: Proximal segmental Right: 0.75 Left: 1.0. Mid segmental Right: 0.77 Left: 1.0. Distal segmental Right: 0.55 Left: 1.0 Renal Aortic Ratio: Right RAR = RRA PSV/Aortic PSV = 100.6 /50.5= 2. Left RAR = LRA PSV/Aortic PSV = 50.5/50.5 = 1. End Diastolic Ratio: Right EDR = RRA EDV/RRA PSV = 18/100.6 = 0.18. Left EDR = LRA EDV/LRA PSV = 10/50.5= 0.2. Other: No perivascular solid or cystic masses were noted. IMPRESSION: 1. Bilateral renal aortic ratios were within normal range with no evidence of significant renal artery stenosis. 2. End diastolic ratios and intrarenal resistive indices measurements indicate significant bilateral parenchymal renal vascular disease. Electronically signed by: Leighton Mason MD 07/11/2020 12:50 PM [facility]
== END ==
LOC: US 15:57
PROVIDERS: ATTEND Family Medicine
DX: I10 Essential (primary) hypertension (principal); I77.9 Disorder of arteries and arterioles, unspecified